=== PATIENT | male | born 1990 | race African-American/Black ===

== ENCOUNTER 2023-02-11 00:36 | Emergency (ER) | payer MEDICAID ==
[~2023-02-11] VITALS: Ht 175.3 cm; Wt 104.3 kg
[2023-02-11] MEDS ORDERED: OXYCODONE/APAP 5-325 MG TABLET PO ONE (01:00)
[2023-02-11] MEDS ORDERED: ONDANSETRON ODT 4 MG TAB.RAPDIS SL ONE (01:00)
[2023-02-11] MEDS ORDERED: ONDANSETRON ODT 4 MG TAB.RAPDIS ONE (01:02)
[2023-02-11] MEDS ORDERED: OXYCODONE/APAP 5-325 MG TABLET ONE (01:03)
[2023-02-11] MEDS ORDERED: ONDA4TAB5 PO (01:07)
[2023-02-11] MEDS ORDERED: OXYC-128 PO (01:07)
== END 2023-02-11 01:29 | disposition home or self-care (01) ==
LOC: ER 00:43
DX: S83.91XA Sprain of unspecified site of right knee, initial encounter (principal); M79.604 Pain in right leg; Z88.0 Allergy status to penicillin; Z79.899 Other long term (current) drug therapy; V89.2XXA Person injured in unspecified motor-vehicle accident, traffic, initial encounter; Y93.89 Activity, other specified; Y92.89 Other specified places as the place of occurrence of the external cause; Y99.8 Other external cause status
CPT/HCPCS: 73562; 73590; A4663; Q0162